=== PATIENT | female | born 1960 | race Caucasian/White ===

== ENCOUNTER 2021-04-02 10:02 | Day surgery (SDC) | payer OTHER ==
[2021-03-29 12:03] VITALS: BMI 21.1
[2021-04-02] MEDS ORDERED: VANCOMYCIN 1,000 MG VIAL (RESTRICTED TO ID ONLY) ONE (10:14)
[2021-04-02] MEDS ORDERED: GENTAMICIN SO4 80 MG/2 ML VIAL ONE (10:14)
[2021-04-02] MEDS ORDERED: LIDOCAINE HCL 1%, 10 MG/ML (20ML VIAL) ONE (10:29)
[2021-04-02] MEDS ORDERED: EPINEPHrine/PF 1 MG/1 ML (1:1,000) AMPULE ONE (10:29)
[2021-04-02] MEDS ORDERED: PROPOFOL 20 ML ONE ×2 (12:23)
[2021-04-02] MEDS ORDERED: MIDAZOLAM HCL 2 MG/2 ML SINGLE DOSE VIAL ONE (12:23)
[2021-04-02] MEDS ORDERED: LIDOCAINE HCL 2% JELLY (5 ML/TUBE) ONE (12:30)
[2021-04-02] MEDS ORDERED: ONDANSETRON 4 MG/2 ML VIAL ONE (12:34)
[2021-04-02] MEDS ORDERED: KETOROLAC TROMETHAMINE 30 MG/1 ML VIAL ONE (12:34)
[2021-04-02] MEDS ORDERED: ceFAZolin SODIUM 1 GM VIAL ONE (12:34)
[2021-04-02] MEDS ORDERED: DEXAMETHASONE SOD PHOSPHATE 4 MG/1 ML VIAL ONE (12:34)
[2021-04-02] MEDS ORDERED: ePHEDrine SULFATE 50 MG/1 ML AMPULE ONE (12:47)
[2021-04-02] MEDS ORDERED: LIDOCAINE 1%/EPI 1:100000 (20 ML MULTI DOSE VIAL) ONE (13:02)
[2021-04-02] MEDS ORDERED: PROMETHAZINE HCL 25 MG/1 ML VIAL IVPUSH PRN (14:11)
[2021-04-02] MEDS ORDERED: oxyCODONE HCL 5 MG TABLET PO PRN ×2 (14:11)
[2021-04-02] MEDS ORDERED: ONDANSETRON 4 MG/2 ML VIAL IVPUSH PRN (14:11)
[2021-04-02 15:48] VITALS: TEMP 97.3
[2021-04-02 16:51] VITALS: BP 112/69; PULSE 86
== END 2021-04-02 16:52 | disposition home or self-care (01) ==
LOC: FASU 10:02
PROVIDERS: ATTEND Plastic Surgery
PROC: 0HNT0ZZ Release Right Breast, Open Approach (ICD-10-PCS; principal; 2021-04-02 12:54)
PROC: 0HRT37Z Replacement of Right Breast with Autologous Tissue Substitute, Percutaneous Approach (ICD-10-PCS; 2021-04-02 12:54)
DX: M95.4 Acquired deformity of chest and rib (principal); Z90.13 Acquired absence of bilateral breasts and nipples; Z85.3 Personal history of malignant neoplasm of breast; Z92.3 Personal history of irradiation; N65.1 Disproportion of reconstructed breast
CPT/HCPCS: 19342; 19370; 19380; L8600; 88300-TC; 94760